=== PATIENT | female | born 1975 | race Caucasian/White ===

== ENCOUNTER → 2017-08-20 | Outpatient (CLI) | payer SELFPAY | END | disposition home or self-care (01) | LOC: KCIC US 10:40 | DX: N88.8 Other specified noninflammatory disorders of cervix uteri (principal); R39.89 Other symptoms and signs involving the genitourinary system | CPT/HCPCS: 76830; 76856 ==

== ENCOUNTER → 2019-03-26 | Outpatient (CLI) | payer OTHER ==
[2016-04-25 11:00] VITALS: BP 120/62
[~2019-03-26] MED LIST: ASPI-621 PO; ASPI500T16 PO; ASPI81TA50 PO; AZIT250T6 PO; CYCL10TA2 PO; DIAZEPAM10 MG PO; HYDR-3164 PO; MAGN1TAB PO; NAPR220T70 PO; OMEG-152 PO; OXCA300T19 PO; TRIA15CR2 TP; ZOLP5TAB PO
[2019-03-26 15:02] LABS: BASO # 0.1 x10^3/uL (0.0-0.2); BASO % 1 % (0-3); EOS # 0.2 x10^3/uL (0.0-0.7); EOS % 2 % (0-3); HEMOGLOBIN 13.6 g/dL (12.0-15.5); LYMPH # 2.7 x10^3/uL (1.0-4.8); LYMPH % 30 % (24-48); MEAN CORPUSCULAR HEMOGLOBIN 31 pg (25-35); MEAN CORPUSCULAR HGB CONC 34 g/dL (31-37); MEAN CORPUSCULAR VOLUME 92 fL (79-100); MONO # 0.6 x10^3/uL (0.0-1.1); MONO % 7 % (0-9); NEUT # 5.5 x10^3/uL (1.8-7.7); NEUT % 60 % (31-73); PLATELET COUNT 295 x10^3/uL (140-400); RED BLOOD COUNT 4.34 x10^6/uL (3.50-5.40); RED CELL DISTRIBUTION WIDTH 13.9 % (11.5-14.5); WHITE BLOOD COUNT 9.1 x10^3/uL (4.0-11.0)
--- NOTE | 2019-03-26 15:18 | RAD ---
AP and Lateral Views of the Chest 03/26/2019 1:41 PM Indication: Preoperative Comparison: None Findings: Minimal linear areas of discoid atelectasis or scarring are seen in the bilateral lung bases. Otherwise, there is no focal consolidation or infiltrate identified. The cardiomediastinal silhouette is within normal limits. There is no evidence of pneumothorax or pleural effusion. No acute osseous abnormalities are identified. Impression: 1.. Minimal discoid atelectasis or scarring involving the lung bases. 2. Otherwise no acute cardiopulmonary process. Electronically signed by: Evaristo Dean MD (03/26/2019 3:15 PM) [id number]
[2019-03-26 15:32] LABS: CALCIUM 8.7 mg/dL (8.5-10.1); GFR 60.5; POTASSIUM 4.1 mmol/L (3.5-5.1); TOTAL BILIRUBIN 0.2 mg/dL (0.2-1.0)
== END | disposition home or self-care (01) ==
LOC: SURGPAT 13:31
PROVIDERS: ATTEND Surgery
DX: Z01.818 Encounter for other preprocedural examination (principal); K80.20 Calculus of gallbladder without cholecystitis without obstruction; R05 Cough; Z88.0 Allergy status to penicillin
CPT/HCPCS: 36415; 71046; 80048; 82040; 82247; 85025

== ENCOUNTER 2020-04-05 11:19 | Emergency (ER) | payer SELFPAY ==
[~2020-04-05] VITALS: Ht 167.6 cm; Wt 116.0 kg
--- NOTE | 2020-04-05 11:39 | RAD ---
PQRS Compliance Statement: One or more of the following individualized dose reduction techniques were utilized for this examination: 1. Automated exposure control 2. Adjustment of the mA and/or kV according to patient size 3. Use of iterative reconstruction technique CT head without contrast 04/05/2020 11:20 AM INDICATION: Left facial numbness COMPARISON: None available TECHNIQUE: Multiple axial CT images of the head were obtained from skull base through the vertex without intravenous contrast. FINDINGS: Head: Ventricles, sulci and basal cisterns are within normal limits. There is no hydrocephalus. Manzanares-white matter differentiation is normal. There is no acute intracranial hemorrhage. There is no mass, mass effect or midline shift. Posterior fossa is normal in appearance. Visualized portions of the orbits are normal. Paranasal sinuses are well aerated. Mastoid air cells are well aerated. Scalp and calvaria are normal. IMPRESSION: No acute intracranial hemorrhage. FOR INTERNAL CODING PURPOSES Critical result: Findings discussed with ELISHA LUCIANO at 04/05/2020 11:35 AM. RESULT CODE: (C) Electronically signed by: Ana Farrell MD (04/05/2020 11:37 AM) [id number]
[2020-04-05 11:45] LABS: BASO # 0.1 x10^3/uL (0.0-0.2); BASO % 1 % (0-3); EOS # 0.2 x10^3/uL (0.0-0.7); EOS % 3 % (0-3); HEMATOCRIT 40.6 % (36.0-47.0); HEMOGLOBIN 13.8 g/dL (12.0-15.5); LYMPH % 34 % (24-48); MEAN CORPUSCULAR HEMOGLOBIN 31 pg (25-35); MEAN CORPUSCULAR HGB CONC 34 g/dL (31-37); MEAN CORPUSCULAR VOLUME 92 fL (79-100); MONO # 0.5 x10^3/uL (0.0-1.1); MONO % 6 % (0-9); NEUT # 4.9 x10^3/uL (1.8-7.7); NEUT % 56 % (31-73); PLATELET COUNT 264 x10^3/uL (140-400); RED BLOOD COUNT 4.41 x10^6/uL (3.50-5.40); RED CELL DISTRIBUTION WIDTH 13.4 % (11.5-14.5); WHITE BLOOD COUNT 8.8 x10^3/uL (4.0-11.0)
--- NOTE | 2020-04-05 11:48 | PHYS DOC ---
Past Medical History Past Medical History: Anxiety, Bipolar, GERD Additional Past Medical Histor: insomnia, manic depressive, panic attacks Past Surgical History: No Surgical History Smoking Status: Current Every Day Smoker Alcohol Use: Rarely Drug Use: None General Adult EDM: Chief Complaint: NEURO SYMPTOMS/DEFICITS HPI: HPI: History gained from patient. Patient is a 44-year-old female with a history of prediabetes, hypertension, insomnia, manic depressive disorder who presents with a chief complaint of left upper and lower extremity numbness. Patient states she went to bed approximately 7 hours prior to arrival. She states she woke up 4-1/2 hours prior to arrival noted left-sided numbness. States she noted some mild left upper extremity left lower extremity weakness with decrease in station. She states she has been intermittently confused as well. States she felt lightheaded to the point where she might pass out prior to EMS arrival. She also notes she has had some chest pain that developed shortly afterwards. States that the chest tightness that radiates across the left side of her chest. Denies shortness of breath. Denies cough or fever. Denies feelings of irregular rapid heartbeat. Denies any history of invasive cardiac evaluation. Denies any drug or alcohol abuse. Does endorse tobacco abuse. Denies a history of stroke. Does state that she has had balance issues over the past month. Denies any falls or head trauma. Denies any slurred speech. Denies any exertional shortness breath or dyspnea at baseline. Denies any PND. No further complaints. Review of Systems: Review of Systems: Constitutional: Denies fever or chills. [] Eyes: Denies change in visual acuity. [] HENT: Denies nasal congestion or sore throat. [] Respiratory: Denies cough or shortness of breath. [] Cardiovascular: Positive for chest pain GI: Denies abdominal pain, nausea, vomiting, bloody stools or diarrhea. [] : Denies dysuria. [] Musculoskeletal: Denies back pain or joint pain. [] Integument: Denies rash. [] Neurologic: Positive for numbness and weakness Endocrine: Denies polyuria or polydipsia. [] Lymphatic: Denies swollen glands. [] Psychiatric: Denies depression or anxiety. [] Heart Score: Risk Factors: Risk Factors: DM, Current or recent (<one month) smoker, HTN, HLP, family history of CAD, obesity. Risk Scores: Score 0 - 3: 2.5% MACE over next 6 weeks - Discharge Home Score 4 - 6: 20.3% MACE over next 6 weeks - Admit for Clinical Observation Score 7 - 10: 72.7% MACE over next 6 weeks - Early Invasive Strategies Allergies: Allergies: Allergies Coded Allergies Type Severity Reaction Last Updated Verified Penicillins Allergy Severe ANAPHYLAXIS 03/26/19 No amoxicillin Allergy Severe ANALPHYLAXIS 03/26/19 No lactose Adverse Reaction Intermediate INTOLERANCE 04/01/19 Yes Physical Exam: PE: Constitutional: Well developed, well nourished, no acute distress, non-toxic appearance. [] HENT: Normocephalic, atraumatic, bilateral external ears normal, oropharynx moist, no oral exudates, nose normal. [] Eyes: PERRLA, EOMI, conjunctiva normal, no discharge. [] Neck: Normal range of motion, no tenderness, supple, no stridor. [] Cardiovascular:Heart rate regular rhythm, no murmur [] Lungs & Thorax: Bilateral breath sounds clear to auscultation [] Abdomen: Bowel sounds normal, soft, no tenderness, no masses, no pulsatile masses. [] Skin: Warm, dry, no erythema, no rash. [] Back: No tenderness, no CVA tenderness. [] Extremities: No tenderness, no cyanosis, no clubbing, ROM intact, no edema. [] Neurologic: Alert and oriented X 3, normal motor function, normal sensory function, no focal deficits noted. [] Psychologic: Affect normal, judgement normal, mood normal. [] Current Patient Data: Labs: Laboratory Tests Test 04/05/20 11:34 04/05/20 12:05 04/05/20 12:30 04/05/20 12:51 White Blood Count 8.8 x10^3/uL Red Blood Count 4.41 x10^6/uL Hemoglobin 13.8 g/dL Hematocrit 40.6 % Mean Corpuscular Volume 92 fL Mean Corpuscular Hemoglobin 31 pg Mean Corpuscular Hemoglobin Concent 34 g/dL Red Cell Distribution Width 13.4 % Platelet Count 264 x10^3/uL Neutrophils (%) (Auto) 56 % Lymphocytes (%) (Auto) 34 % Monocytes (%) (Auto) 6 % Eosinophils (%) (Auto) 3 % Basophils (%) (Auto) 1 % Neutrophils # (Auto) 4.9 x10^3/uL Lymphocytes # (Auto) 3.0 x10^3/uL Monocytes # (Auto) 0.5 x10^3/uL Eosinophils # (Auto) 0.2 x10^3/uL Basophils # (Auto) 0.1 x10^3/uL Prothrombin Time 13.8 SEC Prothromb Time International Ratio 1.1 Activated Partial Thromboplast Time 28 SEC Maternal Serum HCG Beta Subunit 1 mIU/mL Sodium Level 137 mmol/L Potassium Level 4.3 mmol/L Chloride Level 99 mmol/L Carbon Dioxide Level 27 mmol/L Anion Gap 11 Blood Urea Nitrogen 9 mg/dL Creatinine 0.8 mg/dL Estimated GFR (Cockcroft-Gault) 77.9 Glucose Level 216 mg/dL Calcium Level 9.0 mg/dL Magnesium Level 1.9 mg/dL Troponin I Quantitative < 0.017 ng/mL Ethyl Alcohol Level < 10 mg/dL Urine Collection Type Unknown Urine Color Yellow Urine Clarity Clear Urine pH 7.0 Urine Specific [place] 1.010 Urine Protein 100 mg/dL Urine Glucose (UA) Negative mg/dL Urine Ketones (Stick) Negative mg/dL Urine Blood Negative Urine Nitrite Negative Urine Bilirubin Negative Urine Urobilinogen Dipstick 0.2 mg/dL Urine Leukocyte Esterase Negative Urine RBC 0 /HPF Urine WBC Rare /HPF Urine Squamous Epithelial Cells Few /LPF Urine Bacteria 0 /HPF Urine Mucus Mod /LPF Urine Opiates Screen Neg Urine Methadone Screen Neg Urine Barbiturates Neg Urine Phencyclidine Screen Neg Urine Amphetamine/Methamphetamine Neg Urine Benzodiazepines Screen Pos Urine Cocaine Screen Neg Urine Cannabinoids Screen Neg Urine Ethyl Alcohol Neg Bedside Urine HCG, Qualitative Hcg negative Current Medications Medications (Trade) Dose Ordered Sig/Magdalena Route PRN Reason Start Time Stop Time Status Last Admin Dose Admin Acetaminophen (Tylenol) 650 mg PRN Q6HRS PRN PO TEMP > 100.4F 04/05/20 12:45 Acetaminophen (Tylenol Supp) 650 mg PRN Q4HRS PRN CO TEMP > 100.4F 04/05/20 12:45 Aspirin (Ecotrin) 325 mg DAILYWBKFT PO 04/06/20 08:00 Aspirin (Aspirin Rectal Supp) 300 mg PRN DAILY PRN CO IF UNABLE TO TAKE PO 11/25/20 12:45 Iohexol (Omnipaque 300 Mg/ml) 75 ml 1X ONCE IV 04/05/20 13:15 04/05/20 13:16 DC 04/05/20 13:22 Info (CONTRAST GIVEN -- Rx MONITORING) 1 each PRN DAILY PRN MC SEE COMMENTS 04/05/20 13:15 04/07/20 13:14 Vital Signs: Vital Signs Date Time Temp Pulse Resp B/P (MAP) Pulse Ox O2 Delivery O2 Flow Rate FiO2 04/05/20 13:33 82 16 131/78 (95) 92 Room Air 04/05/20 13:03 78 20 123/63 (83) 94 Room Air 04/05/20 12:48 78 20 156/68 (97) 93 Room Air 04/05/20 12:34 82 20 137/81 (99) 92 04/05/20 12:19 80 20 117/86 (96) 94 Room Air 04/05/20 12:04 90 20 127/65 (85) 94 04/05/20 11:49 86 20 154/83 (106) 93 04/05/20 11:34 86 20 147/78 (101) 93 Room Air 04/05/20 11:19 97.7 91 16 134/82 (99) 95 Room Air 97.7 EKG: EKG: EKG consistent with normal sinus rhythm. Ventricular rate of 85 bpm. Left axis noted. Intervals normal. No acute ischemic changes appreciated. [] Radiology/Procedures: Radiology/Procedures: [facility] [address] [place], [place] [id number] IMAGING REPORT Signed PATIENT: VANESSA CHUNG ACCOUNT: [id number] : 1975 LOCATION: ER AGE: 44 SEX: F EXAM STATUS: REG ER ORD. PHYSICIAN: ELISHA LUCIANO DO REASON: LUE and LLE numbness PROCEDURE: CT ANGIOGRAPHY HEAD AND NECK EXAM: CT Angiogram of the Head and Neck INDICATION: Reason: LUE and LLE numbness / Spl. Instructions: INJ 75ML OMNI 300 / History: TECHNIQUE: CT images were obtained through the head per standard CTA protocol. Multiplanar and 3D reformatted images were generated from the CT dataset on an independent workstation. All CT scans performed at this facility utilize dose optimization techniques as appropriate to the exam, including the following: Automated exposure control and adjustment of the mA and/or KV according to patient size (this includes techniques or standardized protocols for targeted exams where dose is indication/reason for exam). IV CONTRAST: Administered COMPARISON: None FINDINGS: CTA HEAD: No high-grade large vessel stenosis, proximal or branch vessel occlusion, aneurysm, or vascular malformation. ANTERIOR CIRCULATION: Anterior and middle cerebral arteries are widely patent. ANTERIOR COMMUNICATING ARTERY: Patent. POSTERIOR COMMUNICATING ARTERIES: Present bilaterally and patent. POSTERIOR CIRCULATION: Vertebral and basilar arteries are widely patent. Bilateral posterior inferior cerebellar arteries (PICAs), anterior inferior cerebellar arteries (AICAs), and superior cerebellar arteries (SCAs) are visualized and patent. Posterior cerebral arteries are unremarkable. OTHER: No abnormal brain parenchymal enhancement. The paranasal sinuses, mastoid air cells, and tympanic cavities are clear. NECK CTA: AORTA: 3 vessel configuration of arch. No dissection or acute aortic injury. No hemodynamically significant great vessel origin stenosis. RIGHT CAROTID: Common and internal carotid arteries are widely patent, without evidence of flow limiting stenosis or dissection. LEFT CAROTID: Common and internal carotid arteries are widely patent, without evidence of flow limiting stenosis or dissection. VERTEBRAL ARTERIES: Codominant. No evidence of dissection or flow limiting stenosis. SUBCLAVIAN ARTERIES:Subclavian arteries are patent without stenosis. SOFT TISSUES: Soft tissues are unremarkable. Lung apices show anterior left upper lobe subpleural densities suggesting atelectasis or scarring (image 1 of series 4) Where applicable, evaluation of ICA stenosis was performed using NASCET criteria, where the site of greatest stenosis is compared to the diameter of the ICA distal to the carotid bulb. IMPRESSION: No acute vascular pathology on CTA of the head and neck. FOR INTERNAL CODING PURPOSES Critical result: Findings discussed with ELISHA LUCIANO at 04/05/2020 1:51 PM. RESULT CODE: (C) Electronically signed by: Rosalia Swartz MD (04/05/2020 1:53 PM) [id number] DICTATED and SIGNED BY: ROSALIA SWARTZ MD DATE: 04/05/20 [id number] [facility] [address] [place] [address] IMAGING REPORT Signed PATIENT: VANESSA CHUNG ACCOUNT: [id number] : 1975 LOCATION: ER AGE: 44 SEX: F EXAM STATUS: PRE ER ORD. PHYSICIAN: ELISHA LUCIANO DO REASON: L facial numbness, PROCEDURE: CT CODE STROKE HEAD WO PQRS Compliance Statement: One or more of the following individualized dose reduction techniques were utilized for this examination: 1. Automated exposure control 2. Adjustment of the mA and/or kV according to patient size 3. Use of iterative reconstruction technique CT head without contrast 04/05/2020 11:20 AM INDICATION: Left facial numbness COMPARISON: None available TECHNIQUE: Multiple axial CT images of the head were obtained from skull base through the vertex without intravenous contrast. FINDINGS: Head: Ventricles, sulci and basal cisterns are within normal limits. There is no hydrocephalus. Manzanares-white matter differentiation is normal. There is no acute intracranial hemorrhage. There is no mass, mass effect or midline shift. Posterior fossa is normal in appearance. Visualized portions of the orbits are normal. Paranasal sinuses are well aerated. Mastoid air cells are well aerated. Scalp and calvaria are normal. IMPRESSION: No acute intracranial hemorrhage. FOR INTERNAL CODING PURPOSES Critical result: Findings discussed with ELISHA LUCIANO at 04/05/2020 11:35 AM. RESULT CODE: (C) Electronically signed by: Tristan Christensen MD (04/05/2020 11:37 AM) [id number] DICTATED and SIGNED BY: TRISTAN CHRISTENSEN MD DATE: 04/05/20 [id number] 0 [] Course & Med Decision Making: Course & Med Decision Making Pertinent Labs and Imaging studies reviewed. (See chart for details) [] Patient is a 44-year-old female who presents with chief complaint of left upper and lower extremity numbness associated with chest pain. Onset of arrival potentially 4 and half hours prior to arrival. However the symptoms began during her sleep. Initial exam noted above. Stroke alert was called. Noncontrast head imaging negative for acute abnormality. Labs have been grossly unremarkable. Patient unable to provide urine sample and refusing straight catheterization. I did speak with neurologist Dr. Enriquez who did recommend CTA of the head neck. There is also obtained revealed no gross abnormalities. On repeat examination patient's neurologic symptoms have now resolved. Unclear etiology regarding her symptoms. TIA versus CVA is possible. Furthermore I am concerned for chest pain given no previous history of cardiac work-up and she does have risk factors for CAD. I did go over the results of labs and imaging in great detail the patient. I specified my recommendation is that she be hospitalized for further work-up and evaluation. At this time she is electing to leave AGAINST MEDICAL ADVICE. She states that her biggest concern is wearing a mask for 24 hours. I did explain that we cannot fully exclude life or limb threatening illness without being further hospitalized. Patient is alert and oriented x3 at this time. She does appear to have capacity to make her own decisions. She does appear to be clinically sober and have an understanding of her basic other care needs and potential consequences. She was encouraged to return back to the emergency department at any time should she want to be reevaluated. Patient leaving AGAINST MEDICAL ADVICE. Full dose aspirin administered in the emergency department. Dragon Disclaimer: Dragon Disclaimer: This electronic medical record was generated, in whole or in part, using a voice recognition dictation system. Departure Departure Impression: Primary Impression: Left upper extremity numbness Additional Impressions: Left leg numbness Chest pain Qualified Codes: R07.9 - Chest pain, unspecified Disposition: 07 AMA/ELOPED/LWBS Referrals: SUDHIR MAN DO (PCP) Patient Instructions: Chest Pain (Nonspecific), Ischemic Stroke Additional Instructions: Please return back to the emergency department at any time should you want to be reevaluated. Please follow-up with your primary care physician in the next 2 to 3 days. NIHSS Stroke Scale NIH Stroke Scale: NIH Stroke Scale Response (Comments) Value Level of Consciousness: 0 Alert/Responsive 0 LOC Questions: 0 Answers both correctly 0 LOC Commands: 0 Performs both tasks 0 Best Gaze: 0 Normal 0 Visual: 0 No visual loss 0 Facial Palsy: 0 Normal, symmetrical 0 Motor - Left Arm 0 No drift 0 Motor - Right Arm 0 No drift 0 Motor - Left Leg 1 Drift but can hold 1 Motor: Right Leg 0 No drift 0 Limb Ataxia: 0 Absent 0 Sensory: 1 Mid to moderate loss 1 Best Language: 0 Normal 0 Dysathria: 0 Normal 0 Extinction and Inattention: 0 Normal 0 Total 2 ELISHA LUCIANO DO Apr 05, 2020 11:48
[2020-04-05 11:58] LABS: PROTHROMBIN TIME PATIENT 13.8 SEC (11.7-14.0)
--- NOTE | 2020-04-05 12:14 | RAD ---
PORTABLE CHEST 1V INDICATION: Reason: left facial numbness / Spl. Instructions: / History: . COMPARISON STUDY: None. FINDINGS: Lungs: Normal lung volume. No pulmonary mass or consolidation. The tracheobronchial tree and hilar structures are normal. Pleura: No pleural effusion or pneumothorax. Heart and Mediastinum: The cardiomediastinal silhouette is normal. The great vessels of the thorax are normal. Bones and Soft Tissues: The bones and soft tissues are within normal limits. IMPRESSION: No acute cardiopulmonary process. Electronically signed by: Alexis Pelayo MD (04/05/2020 12:12 PM) [id number]
[2020-04-05] MEDS ORDERED: ASPIRIN RECTAL 300 MG SUPP. PR PRN (12:45)
[2020-04-05] MEDS ORDERED: ACETAMINOPHEN 325 MG TABLET. PO PRN (12:45)
[2020-04-05] MEDS ORDERED: ACETAMINOPHEN 650 MG SUPP.RECT. PR PRN (12:45)
--- NOTE | 2020-04-05 12:54 | PDOC2 ---
NEUROLOGY CONSULT Date of Service DOS: DATE: 04/05/20 TIME: 12:48 Reason for Consult Reason for Consult: Stroke symptoms Referring Physician Referring Physician: Hospitalist Source Source: Chart review, Patient History of Present Illness History of Present Illness The patient is a 44-year-old right-handed female who woke up at about 7 AM with a feeling of numbness on the left side. She describes numbness in half of her left hand which radiated up the hand into the chest and down the leg. She has had trouble walking. She feels confused and lightheaded. She has started to get a headache. Indeed she does have a history of migraine headaches with her last headache a month ago. 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 She gets blurred vision and falls down. She also describes a heat stroke in 2001 accompanied by a seizure for which she was worked up in [place]. There is no history of head injury. Past Medical History CENTRAL NERVOUS SYSTEM: Migraine GI: GERD Psych: Anxiety, Bipolar, Panic Musculoskeletal: low back pain Past Surgical History Past Surgical History: No pertinent history Family History Family History: Cancer (Lymphoma) Social History Social History , 1/2 pack/day, rare alcohol, unemployed Current Medications Current Medications Active Scripts Active Reported Antacid Extra Strength Chw Tab (Magnesium Carbonate/Al Hydrox) 1 Each Tab.chew 1 Each PO PRN PRN Fish Oil 1,000 Mg Softgel ([place]-3/Dha/Epa/Fish Oil) 1 Each Capsule 1 Cap PO BID 30 Days Ambien (Zolpidem Tartrate) 5 Mg Tablet 5 Mg PO PRN QHS PRN Cyclobenzaprine Hcl 10 Mg Tablet 1 Tab PO QHS Aleve (Naproxen Sodium) 220 Mg Tablet 220 Mg PO BID Aspir-Low (Aspirin) 81 Mg Tablet.dr 81 Mg PO DAILY Diazepam 10 Mg Tablet 10 Mg PO BID Oxcarbazepine 300 Mg Tablet 1 Tab PO DAILY 30 Days Triamcinolone Acetonide 0.025% Cream (Triamcinolone Acetonide) 15 Gm Cream..g. 1 Harmony TP PRN [place] 5-325 Tablet (Acetaminophen/Hydrocodone Bitart) 1 Each Tablet 1 Tab PO TID Azithromycin Tablet (Azithromycin) 250 Mg Tablet 1 Pkg PO UD 5 Days 2 the first day followed by 1 for days 2-5 Excedrin Extra Strength Caplet (Aspirin/Acetaminophen/Caffeine) 1 Each Tablet 1 Each PO PRN PRN [place] Es Tab Eff (Aspirin/Sod Bicarb/Citric Acid) 1 Each Tablet.eff 1 Each PO PRN PRN Allergies Allergies: Coded Allergies: Penicillins (Unverified Allergy, Severe, ANAPHYLAXIS, 03/26/19) amoxicillin (Unverified Allergy, Severe, ANALPHYLAXIS, 03/26/19) lactose (Verified Adverse Reaction, Intermediate, INTOLERANCE, 04/01/19) ROS Review of System Negative for fever, chills, weight loss, shortness of breath, chest pain, indigestion, hematochezia, melena, and dysuria. Full 14-point review of systems is negative. Physical Exam Physical Examination General: Well-developed, well-nourished white female in no acute distress HEENT: Normocephalic andatraumatic. Temporal arteriespulsatile and nontender. Neck: Supple without bruit, no meningismus Musculoskeletal: Stability:see neurologic. Gait exam:see neurologic. Tone:see neurol ogic.Strength:see neurologic. Neurological: Mental Status:intact, orientation, memory, attention span/concentration, language, fund of knowledge normal. Argues with me about my diagnosis of probably a migraine, says that she knows her body and that she knows that she is having a stroke. Cranial Nerves:Pupils equal and reactive to light, extraocular movements areintact, visual thomas are full to confrontation. Facial sensation is normal. There is no facial asymmetry. Vestibulo-ocular reflex is intact. Palate elevates and tongue protrudes in midline. All other cranial related problems are negative except as mentioned before.Reflexes:2+ and symmetric with flexor plantar responses. Motor:5/5 strength with normal tone and bulk. Coordination:Finger-nose finger and itbo-yb-jqbp testing are normal. Rapid alternating movements and fine finger movements are intact. Gait:Unsteady, no circumduction, not consistent with organic neurological disorder. Sensory:Left hemisensory loss splitting the midline Vitals VITALS Vital Signs Date Time Temp Pulse Resp B/P (MAP) Pulse Ox O2 Delivery O2 Flow Rate FiO2 04/05/20 12:19 80 20 117/86 (96) 94 Room Air 04/05/20 11:19 97.7 97.7 Labs Labs Laboratory Tests Test 04/05/20 11:34 White Blood Count 8.8 x10^3/uL (4.0-11.0) Red Blood Count 4.41 x10^6/uL (3.50-5.40) Hemoglobin 13.8 g/dL (12.0-15.5) Hematocrit 40.6 % (36.0-47.0) Mean Corpuscular Volume 92 fL (79-100) Mean Corpuscular Hemoglobin 31 pg (25-35) Mean Corpuscular Hemoglobin Concent 34 g/dL (31-37) Red Cell Distribution Width 13.4 % (11.5-14.5) Platelet Count 264 x10^3/uL (140-400) Neutrophils (%) (Auto) 56 % (31-73) Lymphocytes (%) (Auto) 34 % (24-48) Monocytes (%) (Auto) 6 % (0-9) Eosinophils (%) (Auto) 3 % (0-3) Basophils (%) (Auto) 1 % (0-3) Neutrophils # (Auto) 4.9 x10^3/uL (1.8-7.7) Lymphocytes # (Auto) 3.0 x10^3/uL (1.0-4.8) Monocytes # (Auto) 0.5 x10^3/uL (0.0-1.1) Eosinophils # (Auto) 0.2 x10^3/uL (0.0-0.7) Basophils # (Auto) 0.1 x10^3/uL (0.0-0.2) Prothrombin Time 13.8 SEC (11.7-14.0) Prothromb Time International Ratio 1.1 (0.8-1.1) Activated Partial Thromboplast Time 28 SEC (24-38) Laboratory Tests Test 04/05/20 11:34 White Blood Count 8.8 x10^3/uL (4.0-11.0) Red Blood Count 4.41 x10^6/uL (3.50-5.40) Hemoglobin 13.8 g/dL (12.0-15.5) Hematocrit 40.6 % (36.0-47.0) Mean Corpuscular Volume 92 fL (79-100) Mean Corpuscular Hemoglobin 31 pg (25-35) Mean Corpuscular Hemoglobin Concent 34 g/dL (31-37) Red Cell Distribution Width 13.4 % (11.5-14.5) Platelet Count 264 x10^3/uL (140-400) Neutrophils (%) (Auto) 56 % (31-73) Lymphocytes (%) (Auto) 34 % (24-48) Monocytes (%) (Auto) 6 % (0-9) Eosinophils (%) (Auto) 3 % (0-3) Basophils (%) (Auto) 1 % (0-3) Neutrophils # (Auto) 4.9 x10^3/uL (1.8-7.7) Lymphocytes # (Auto) 3.0 x10^3/uL (1.0-4.8) Monocytes # (Auto) 0.5 x10^3/uL (0.0-1.1) Eosinophils # (Auto) 0.2 x10^3/uL (0.0-0.7) Basophils # (Auto) 0.1 x10^3/uL (0.0-0.2) Prothrombin Time 13.8 SEC (11.7-14.0) Prothromb Time International Ratio 1.1 (0.8-1.1) Activated Partial Thromboplast Time 28 SEC (24-38) Images Images CT head without contrast 04/05/2020 11:20 AM INDICATION: Left facial numbness COMPARISON: None available TECHNIQUE: Multiple axial CT images of the head were obtained from skull base through the vertex without intravenous contrast. FINDINGS: Head: Ventricles, sulci and basal cisterns are within normal limits. There is no hydrocephalus. Manzanares-white matter differentiation is normal. There is no acute intracranial hemorrhage. There is no mass, mass effect or midline shift. Posterior fossa is normal in appearance. Visualized portions of the orbits are normal. Paranasal sinuses are well aerated. Mastoid air cells are well aerated. Scalp and calvaria are normal. IMPRESSION: No acute intracranial hemorrhage. Assessment/Plan Assessment/Plan Impression: High suspicion for conversion disorder, also consider complicated migraine, but she may have had a stroke as well. Recommendations: Not an alteplase candidate, unclear onset of action, minimal signs and symptoms CT angiogram MRI of the brain Echocardiogram Continue aspirin Supportive therapy for any developing migraine Aiming for discharge tomorrow if tests are negative Thank you for letting me help with the patient's care. RALPH LAFLEUR MD Apr 05, 2020 12:54
[2020-04-05 13:02] LABS: BILIRUBIN,URINE NEGATIVE (NEG); CLARITY,URINE CLEAR; COLOR,URINE YELLOW; NITRITE,URINE NEGATIVE (NEG); PROTEIN,URINE 100 mg/dL (NEG-TRACE); UROBILINOGEN,URINE 0.2 mg/dL (0.2 mg/dL)
[2020-04-05 13:08] LABS: CREATININE 0.8 mg/dL (0.6-1.0); GFR 77.9; POTASSIUM 4.3 mmol/L (3.5-5.1)
[2020-04-05 13:10] LABS: BARBITURATES NEG (NEG); BENZODIAZEPINES POS (NEG); CANNABINOIDS NEG (NEG); COCAINE NEG (NEG); METHADONE NEG (NEG); OPIATES NEG (NEG); PHENCYCLIDINE NEG (NEG)
[2020-04-05 13:11] LABS: AMPHETAMINE/METHAMPHETAMINE NEG (NEG)
[2020-04-05] MEDS ORDERED: CONTRAST GIVEN. MC PRN (13:15)
[2020-04-05] MEDS ORDERED: IOHEXOL 300 MG/ML 100ML VIAL. IV ONE (13:15)
[2020-04-05 13:16] LABS: BACTERIA,URINE 0 /HPF (0-FEW); RBC,URINE 0 /HPF (0-2); WBC,URINE RARE /HPF (0-4)
--- NOTE | 2020-04-05 13:55 | RAD ---
EXAM: CT Angiogram of the Head and Neck INDICATION: Reason: LUE and LLE numbness / Spl. Instructions: INJ 75ML OMNI 300 / History: TECHNIQUE: CT images were obtained through the head per standard CTA protocol. Multiplanar and 3D reformatted images were generated from the CT dataset on an independent workstation. All CT scans performed at this facility utilize dose optimization techniques as appropriate to the exam, including the following: Automated exposure control and adjustment of the mA and/or KV according to patient size (this includes techniques or standardized protocols for targeted exams where dose is indication/reason for exam). IV CONTRAST: Administered COMPARISON: None FINDINGS: CTA HEAD: No high-grade large vessel stenosis, proximal or branch vessel occlusion, aneurysm, or vascular malformation. ANTERIOR CIRCULATION: Anterior and middle cerebral arteries are widely patent. ANTERIOR COMMUNICATING ARTERY: Patent. POSTERIOR COMMUNICATING ARTERIES: Present bilaterally and patent. POSTERIOR CIRCULATION: Vertebral and basilar arteries are widely patent. Bilateral posterior inferior cerebellar arteries (PICAs), anterior inferior cerebellar arteries (AICAs), and superior cerebellar arteries (SCAs) are visualized and patent. Posterior cerebral arteries are unremarkable. OTHER: No abnormal brain parenchymal enhancement. The paranasal sinuses, mastoid air cells, and tympanic cavities are clear. NECK CTA: AORTA: 3 vessel configuration of arch. No dissection or acute aortic injury. No hemodynamically significant great vessel origin stenosis. RIGHT CAROTID: Common and internal carotid arteries are widely patent, without evidence of flow limiting stenosis or dissection. LEFT CAROTID: Common and internal carotid arteries are widely patent, without evidence of flow limiting stenosis or dissection. VERTEBRAL ARTERIES: Codominant. No evidence of dissection or flow limiting stenosis. SUBCLAVIAN ARTERIES:Subclavian arteries are patent without stenosis. SOFT TISSUES: Soft tissues are unremarkable. Lung apices show anterior left upper lobe subpleural densities suggesting atelectasis or scarring (image 1 of series 4) Where applicable, evaluation of ICA stenosis was performed using NASCET criteria, where the site of greatest stenosis is compared to the diameter of the ICA distal to the carotid bulb. IMPRESSION: No acute vascular pathology on CTA of the head and neck. FOR INTERNAL CODING PURPOSES Critical result: Findings discussed with ELISHA LUCIANO at 04/05/2020 1:51 PM. RESULT CODE: (C) Electronically signed by: Nanda Swartz MD (04/05/2020 1:53 PM) [id number]
[2020-04-05 15:15] VITALS: BP 148/83
[2020-04-06] MEDS ORDERED: ASPIRIN ENTERIC COATED 325 MG TABLET.DR. PO SCH (08:00)
== END 2020-04-05 15:10 | disposition left against medical advice (07) ==
LOC: ER 11:19
DX: R20.0 Anesthesia of skin (principal); R53.1 Weakness; R07.89 Other chest pain; R42 Dizziness and giddiness; F31.9 Bipolar disorder, unspecified; K21.9 Gastro-esophageal reflux disease without esophagitis; F17.200 Nicotine dependence, unspecified, uncomplicated; I10 Essential (primary) hypertension; Z88.0 Allergy status to penicillin; Z88.1 Allergy status to other antibiotic agents; Z91.011 Allergy to milk products
CPT/HCPCS: 36415; 70450; 70496; 70498; 71045; 80048; 80307; 81001; 81025; 83735; 84484; 84702; 85025; 85610; 85730; 99285; G0480; Q9967